=== PATIENT | female | born 1935 ===

== ENCOUNTER 2018-11-25 01:41 | Outpatient (CLI) | payer MEDICARE, MEDICAID | END 2018-11-25 23:59 | disposition home or self-care (01) | LOC: DIABETIC 01:41 | PROVIDERS: ATTEND Specialist | DX: E11.65 Type 2 diabetes mellitus with hyperglycemia (principal); Z79.82 Long term (current) use of aspirin; Z79.01 Long term (current) use of anticoagulants | CPT/HCPCS: G0108 ==